=== PATIENT | male | born 1970 | race Caucasian/White ===

== ENCOUNTER 2024-08-19 12:42 | Emergency (ER) | payer MEDICAID ==
[~2024-08-19] VITALS: Ht 172.7 cm; Wt 85.0 kg
[~2024-08-19 12:42] MED LIST: GABA-1180 PO; KEPP500 PO; LACO100T2 PO; P20 PO
[2024-08-19 13:02] VITALS: BP 125/88; PULSE 81; RESP 18; TEMP 98.2; O2SAT 99
== END 2024-08-19 14:28 | disposition left against medical advice (07) ==
LOC: ER 12:42
DX: Z76.0 Encounter for issue of repeat prescription (principal); Z53.21 Procedure and treatment not carried out due to patient leaving prior to being seen by health care provider